=== PATIENT | female | born 1935 | race African-American/Black ===

== ENCOUNTER 2018-10-14 09:27 | Inpatient (IN) | payer MEDICARE, MEDICAID ==
[~2018-10-14] VITALS: Ht 162.6 cm; Wt 64.9 kg
[~2018-10-14 09:27] MED LIST: ACET-2178 PO; CARB1TAB5 GT; CLON0.1T14 GT; DONE10TA43 GT; FERR325T23; LEVO500T2 PO; Metoprolol Tartrate PO
[2018-10-14 10:44] LABS: BASOPHILS % 0.8 % (0.0-2.0); EOSINOPHILS % 1.8 % (0.0-5.0); HEMATOCRIT. 32.1 % (36.0-48.0); HEMOGLOBIN. 11.2 g/dL (12.0-16.0); LYMPHOCYTES % 29.8 % (20.0-50.0); MEAN CORPUSCULAR HEMOGLOBIN 33.1 pg (28.0-32.0); MEAN CORPUSCULAR VOLUME 95.3 fL (81.0-99.0); MEAN PLATELET VOLUME 10.1 fl (7.4-10.4); NEUTROPHILS % 54.6 % (40.0-76.0); PLATELET 215 x1000/uL (130-400); RED BLOOD CELL COUNT 3.37 mill/uL (4.2-5.4); RED CELL DISTRIBUTION WIDTH 13.1 % (11.6-14.6)
[2018-10-14 10:53] LABS: PROTHROMBIN TIME 10.8 sec (9.6-11.0)
[2018-10-15] VITALS (7 sets, daily range): BP systolic 110–171; BP diastolic 39–83
[2018-10-15] MEDS ORDERED: METO25TA6 GT (01:02)
[2018-10-15] MEDS ORDERED: METF-414 GT (01:06)
[2018-10-15] MEDS ORDERED: BACL-141 GT (01:07)
[2018-10-15] MEDS ORDERED: CHOL200010 GT (01:10)
[2018-10-15] MEDS ORDERED: ASCO500C15 GT (01:10)
[2018-10-15] MEDS ORDERED: ACET-2178 GT (01:14)
[2018-10-15] MEDS ORDERED: HYDR-4001 GT (01:14)
[2018-10-15] MEDS ORDERED: CARB1TAB7 GT (04:17)
[2018-10-15] MEDS ORDERED: HYDROCODONE/ACETAMINOPHEN 5/325MG TABLET GT PRN (04:30)
[2018-10-15] MEDS ORDERED: ACETAMINOPHEN 325MG TABLET GT PRN (04:30)
[2018-10-15] MEDS ORDERED: DEXT 5%/0.9% NACL 1,000 ML IV SCH (05:00)
[2018-10-15] MEDS ORDERED: NON FORMULARY PATIENT HOME MED INJ SCH (09:00)
[2018-10-15 09:01] LABS: CHLORIDE 113 mEq/L (98-107)
[2018-10-15 09:02] LABS: BASOPHILS % 0.5 % (0.0-2.0); HEMATOCRIT. 31.6 % (36.0-48.0); HEMOGLOBIN. 10.5 g/dL (12.0-16.0); LYMPHOCYTES % 36.6 % (20.0-50.0); MEAN CORPUSCULAR HEMOGLOBIN 32.6 pg (28.0-32.0); MEAN CORPUSCULAR VOLUME 97.9 fL (81.0-99.0); MEAN PLATELET VOLUME 10.5 fl (7.4-10.4); MONOCYTES % 13.2 % (2.0-8.0); NEUTROPHILS % 46.7 % (40.0-76.0); PLATELET 191 x1000/uL (130-400); RED BLOOD CELL COUNT 3.23 mill/uL (4.2-5.4); RED CELL DISTRIBUTION WIDTH 13.4 % (11.6-14.6)
[2018-10-15 09:03] LABS: PROTHROMBIN TIME 10.6 sec (9.6-11.0)
[2018-10-15] MEDS: PANTOPRAZOLE SODIUM 40 MG/VIAL IV SCH (09:32)
[2018-10-15] MEDS: CHOLECALCIFEROL (D3) 1000 UNIT TABLET GT SCH (09:32)
[2018-10-15] MEDS: CARBIDOPA/LEVODOPA 10/100MG TABLET GT SCH ×3 (09:32→16:56)
[2018-10-15] MEDS: BACLOFEN 10MG TABLET GT SCH ×2 (09:32→16:56)
[2018-10-15] MEDS: METFORMIN HCL 500MG TABLET GT SCH (09:33)
[2018-10-15] MEDS: ASCORBIC ACID 500 MG TABLET GT SCH (09:33)
[2018-10-15] MEDS: METOPROLOL TARTRATE 25MG TABLET GT SCH ×2 (09:33→21:14)
[2018-10-15 12:34] LABS: PLATELET ESTIMATE NORMAL
[2018-10-15 16:58] LABS: FERRITIN 111 ng/mL (10-291)
[2018-10-15] MEDS ORDERED: DEXTROSE 50% WATER 50ML SYRINGE IV PRN (17:00)
[2018-10-15 17:09] LABS: VITAMIN B12 SERUM 1376 pg/mL (211-911)
[2018-10-15 17:11] LABS: FOLIC ACID (FOLATE) SERUM > 20.00 ng/mL (>5.38)
[2018-10-15] MEDS: BLOOD SUGAR DIAGNOSTIC STRIP TEST SCH ×2 (17:20→21:48)
[2018-10-15] MEDS: INSULIN LISPRO 100 UNITS/ML SUBCUT SCH ×2 (17:50→21:48)
[2018-10-15] MEDS ORDERED: ACETAMINOPHEN 650MG/20.3ML UDC GT PRN (19:45)
[2018-10-15] MEDS: DONEPEZIL HCL 10MG TABLET GT SCH (21:15)
[2018-10-16] VITALS: BP 178/73
[2018-10-16 01:09] LABS: CLARITY URINE CLEAR (CLEAR); COLOR URINE YELLOW (YELLOW); KETONES URINE NEGATIVE (NEGATIVE); LEUKOCYTE ESTERASE URINE 1+ (NEGATIVE); NITRITE URINE NEGATIVE (NEGATIVE); OCCULT BLOOD URINE NEGATIVE (NEGATIVE); PH URINE 8.5 (4.5-8.0); PROTEIN URINE NEGATIVE (NEGATIVE); SPECIFIC GRAVITY URINE 1.011 (1.005-1.030); UROBILINOGEN URINE 0.2 E.U./dL (0.2-1.0)
[2018-10-16 04:00] VITALS: BP 152/72
[2018-10-16] MEDS: BLOOD SUGAR DIAGNOSTIC STRIP TEST SCH ×4 (06:25→21:00)
[2018-10-16] MEDS: INSULIN LISPRO 100 UNITS/ML SUBCUT SCH ×4 (07:50→21:00)
[2018-10-16] MEDS: METFORMIN HCL 500MG TABLET GT SCH (07:50)
[2018-10-16 08:16] VITALS: BP 161/64
[2018-10-16] MEDS: ASCORBIC ACID 500 MG TABLET GT SCH (09:00)
[2018-10-16] MEDS: METOPROLOL TARTRATE 25MG TABLET GT SCH ×2 (09:00→23:33)
[2018-10-16] MEDS: BACLOFEN 10MG TABLET GT SCH ×2 (09:00→16:57)
[2018-10-16] MEDS: CARBIDOPA/LEVODOPA 10/100MG TABLET GT SCH ×3 (09:00→16:57)
[2018-10-16] MEDS: CHOLECALCIFEROL (D3) 1000 UNIT TABLET GT SCH (09:00)
[2018-10-16] MEDS: PANTOPRAZOLE SODIUM 40 MG/VIAL IV SCH (09:36)
[2018-10-16 12:00] VITALS: BP 164/65
[2018-10-16 16:00] VITALS: BP 144/74
[2018-10-16 16:32] LABS: BASOPHILS % 1.1 % (0.0-2.0); EOSINOPHILS % 1.3 % (0.0-5.0); HEMATOCRIT. 32.5 % (36.0-48.0); HEMOGLOBIN. 11.2 g/dL (12.0-16.0); LYMPHOCYTES % 28.3 % (20.0-50.0); MEAN CORPUSCULAR HEMOGLOBIN 32.8 pg (28.0-32.0); MEAN CORPUSCULAR VOLUME 95.6 fL (81.0-99.0); MEAN PLATELET VOLUME 10.3 fl (7.4-10.4); MONOCYTES % 8.5 % (2.0-8.0); NEUTROPHILS % 60.8 % (40.0-76.0); PLATELET 271 x1000/uL (130-400)
[2018-10-16 18:31] LABS: PLATELET ESTIMATE NORMAL
[2018-10-16 20:00] VITALS: BP 141/51
[2018-10-16] MEDS: DONEPEZIL HCL 10MG TABLET GT SCH (23:30)
[2018-10-16] MEDS: MUPIROCIN 2% OINT 22GM NS SCH (23:33)
[2018-10-17] VITALS (10 sets, daily range): BP systolic 86–163; BP diastolic 39–96
[2018-10-17] MEDS: BLOOD SUGAR DIAGNOSTIC STRIP TEST SCH ×4 (07:20→21:09)
[2018-10-17] MEDS: INSULIN LISPRO 100 UNITS/ML SUBCUT SCH ×4 (07:50→21:00)
[2018-10-17] MEDS: METFORMIN HCL 500MG TABLET GT SCH (07:50)
[2018-10-17] MEDS ORDERED: DEXT 5%/0.9% NACL 1,000 ML IV SCH (08:30)
[2018-10-17] MEDS: ASCORBIC ACID 500 MG TABLET GT SCH (09:00)
[2018-10-17] MEDS: BACLOFEN 10MG TABLET GT SCH ×2 (09:00→16:41)
[2018-10-17] MEDS: CARBIDOPA/LEVODOPA 10/100MG TABLET GT SCH ×3 (09:00→16:41)
[2018-10-17] MEDS: CHOLECALCIFEROL (D3) 1000 UNIT TABLET GT SCH (09:00)
[2018-10-17] MEDS: METOPROLOL TARTRATE 25MG TABLET GT SCH ×2 (09:00→21:00)
[2018-10-17] MEDS: MUPIROCIN 2% OINT 22GM NS SCH ×2 (09:11→21:06)
[2018-10-17] MEDS: PANTOPRAZOLE SODIUM 40 MG/VIAL IV SCH (09:19)
[2018-10-17] MEDS ORDERED: DIATR MEGLU/DIATRIZOATE SOLN 30ML ONE (13:56)
[2018-10-17] MEDS: DONEPEZIL HCL 10MG TABLET GT SCH (21:06)
[2018-10-18] VITALS (8 sets, daily range): BP systolic 85–147; BP diastolic 39–108
[2018-10-18 06:37] LABS: BASOPHILS % 0.5 % (0.0-2.0); EOSINOPHILS % 1.3 % (0.0-5.0); HEMATOCRIT. 26.4 % (36.0-48.0); HEMOGLOBIN. 9.2 g/dL (12.0-16.0); MEAN CORPUSCULAR HEMOGLOBIN 32.9 pg (28.0-32.0); MEAN CORPUSCULAR VOLUME 94.9 fL (81.0-99.0); MEAN PLATELET VOLUME 9.6 fl (7.4-10.4); MONOCYTES % 11.4 % (2.0-8.0); NEUTROPHILS % 55.8 % (40.0-76.0); PLATELET 230 x1000/uL (130-400); RED BLOOD CELL COUNT 2.79 mill/uL (4.2-5.4); RED CELL DISTRIBUTION WIDTH 13.2 % (11.6-14.6)
[2018-10-18] MEDS: BLOOD SUGAR DIAGNOSTIC STRIP TEST SCH ×4 (06:58→21:42)
[2018-10-18 07:17] LABS: CHLORIDE 109 mEq/L (98-107)
[2018-10-18 07:23] LABS: PHOSPHORUS 3.2 mg/dL (2.5-4.9)
[2018-10-18] MEDS: INSULIN LISPRO 100 UNITS/ML SUBCUT SCH ×4 (07:50→21:00)
[2018-10-18] MEDS: PANTOPRAZOLE SODIUM 40 MG/VIAL IV SCH (09:38)
[2018-10-18] MEDS: METFORMIN HCL 500MG TABLET GT SCH (10:15)
[2018-10-18] MEDS: CARBIDOPA/LEVODOPA 10/100MG TABLET GT SCH ×3 (10:16→18:29)
[2018-10-18] MEDS: MUPIROCIN 2% OINT 22GM NS SCH ×2 (10:16→21:43)
[2018-10-18] MEDS: METOPROLOL TARTRATE 25MG TABLET GT SCH (10:16)
[2018-10-18] MEDS: CHOLECALCIFEROL (D3) 1000 UNIT TABLET GT SCH (10:17)
[2018-10-18] MEDS: ASCORBIC ACID 500 MG TABLET GT SCH (10:17)
[2018-10-18] MEDS: BACLOFEN 10MG TABLET GT SCH ×2 (10:18→18:29)
[2018-10-18] MEDS: CEFTRIAXONE 1 G PREMIX 50 ML IV SCH (12:01)
[2018-10-18 13:11] LABS: TOTAL IRON BINDING CAPACITY 231 ug/dL (250-450)
[2018-10-19] VITALS: BP 158/53
[2018-10-19 04:00] VITALS: BP 146/58
[2018-10-19] MEDS: BLOOD SUGAR DIAGNOSTIC STRIP TEST SCH ×3 (06:38→21:36)
[2018-10-19] MEDS: INSULIN LISPRO 100 UNITS/ML SUBCUT SCH ×3 (07:50→21:00)
[2018-10-19 08:00] VITALS: BP 116/63
[2018-10-19] MEDS: CHOLECALCIFEROL (D3) 1000 UNIT TABLET GT SCH (09:33)
[2018-10-19] MEDS: MUPIROCIN 2% OINT 22GM NS SCH ×2 (09:33→21:37)
[2018-10-19] MEDS: PANTOPRAZOLE SODIUM 40 MG/VIAL IV SCH (09:33)
[2018-10-19] MEDS: ASCORBIC ACID 500 MG TABLET GT SCH (09:34)
[2018-10-19] MEDS: METFORMIN HCL 500MG TABLET GT SCH (09:34)
[2018-10-19] MEDS: BACLOFEN 10MG TABLET GT SCH ×2 (09:34→17:43)
[2018-10-19] MEDS: CARBIDOPA/LEVODOPA 10/100MG TABLET GT SCH ×3 (09:34→17:43)
[2018-10-19] MEDS: CEFTRIAXONE 1 G PREMIX 50 ML IV SCH (11:58)
[2018-10-19 12:00] VITALS: BP 166/49
[2018-10-19 16:00] VITALS: BP 122/50
[2018-10-19 20:29] VITALS: BP 162/78
[2018-10-20] VITALS: BP 157/71
[2018-10-20 04:00] VITALS: BP 136/57
[2018-10-20 06:29] LABS: BASOPHILS % 0.7 % (0.0-2.0); EOSINOPHILS % 2.4 % (0.0-5.0); HEMATOCRIT. 24.1 % (36.0-48.0); HEMOGLOBIN. 8.3 g/dL (12.0-16.0); LYMPHOCYTES % 31.4 % (20.0-50.0); MEAN PLATELET VOLUME 9.7 fl (7.4-10.4); MONOCYTES % 10.3 % (2.0-8.0); NEUTROPHILS % 55.2 % (40.0-76.0); PLATELET 244 x1000/uL (130-400); RED BLOOD CELL COUNT 2.51 mill/uL (4.2-5.4)
[2018-10-20 06:31] LABS: CHLORIDE 107 mEq/L (98-107)
[2018-10-20] MEDS: BLOOD SUGAR DIAGNOSTIC STRIP TEST SCH ×4 (06:59→21:17)
[2018-10-20] MEDS: INSULIN LISPRO 100 UNITS/ML SUBCUT SCH ×4 (07:50→21:00)
[2018-10-20 08:04] VITALS: BP 156/71
[2018-10-20] MEDS: FERROUS SULFATE 325MG TABLET PO SCH ×2 (09:12→17:56)
[2018-10-20] MEDS: BACLOFEN 10MG TABLET GT SCH ×2 (09:12→17:56)
[2018-10-20] MEDS: METFORMIN HCL 500MG TABLET GT SCH (09:12)
[2018-10-20] MEDS: PANTOPRAZOLE SODIUM 40 MG/VIAL IV SCH (09:12)
[2018-10-20] MEDS: CHOLECALCIFEROL (D3) 1000 UNIT TABLET GT SCH (09:12)
[2018-10-20] MEDS: ASCORBIC ACID 500 MG TABLET GT SCH (09:12)
[2018-10-20] MEDS: CARBIDOPA/LEVODOPA 10/100MG TABLET GT SCH ×3 (09:12→17:56)
[2018-10-20] MEDS: MUPIROCIN 2% OINT 22GM NS SCH ×2 (09:36→21:16)
[2018-10-20 12:29] VITALS: BP 173/64
[2018-10-20] MEDS: CEFTRIAXONE 1 G PREMIX 50 ML IV SCH (12:33)
[2018-10-20 16:30] VITALS: BP 170/66
[2018-10-20 20:00] VITALS: BP 170/62
[2018-10-21] VITALS (13 sets, daily range): BP systolic 107–170; BP diastolic 48–97
[2018-10-21 07:04] LABS: BASOPHILS % 0.6 % (0.0-2.0); EOSINOPHILS % 2.2 % (0.0-5.0); HEMATOCRIT. 22.6 % (36.0-48.0); HEMOGLOBIN. 7.8 g/dL (12.0-16.0); LYMPHOCYTES % 34.3 % (20.0-50.0); MEAN CORPUSCULAR HEMOGLOBIN 33.2 pg (28.0-32.0); MEAN PLATELET VOLUME 9.6 fl (7.4-10.4); MONOCYTES % 9.3 % (2.0-8.0); NEUTROPHILS % 53.6 % (40.0-76.0); PLATELET 241 x1000/uL (130-400); RED BLOOD CELL COUNT 2.35 mill/uL (4.2-5.4); RED CELL DISTRIBUTION WIDTH 13.4 % (11.6-14.6)
[2018-10-21] MEDS: INSULIN LISPRO 100 UNITS/ML SUBCUT SCH ×4 (07:13→21:00)
[2018-10-21 07:15] LABS: CHLORIDE 106 mEq/L (98-107)
[2018-10-21] MEDS: BLOOD SUGAR DIAGNOSTIC STRIP TEST SCH ×4 (07:19→21:17)
[2018-10-21] MEDS: MUPIROCIN 2% OINT 22GM NS SCH ×2 (08:02→21:17)
[2018-10-21] MEDS: FERROUS SULFATE 325MG TABLET PO SCH ×3 (08:03→17:58)
[2018-10-21] MEDS: ASCORBIC ACID 500 MG TABLET GT SCH (08:03)
[2018-10-21] MEDS: BACLOFEN 10MG TABLET GT SCH ×2 (08:03→17:58)
[2018-10-21] MEDS: METFORMIN HCL 500MG TABLET GT SCH (08:03)
[2018-10-21] MEDS: PANTOPRAZOLE SODIUM 40 MG/VIAL IV SCH (08:04)
[2018-10-21] MEDS: CARBIDOPA/LEVODOPA 10/100MG TABLET GT SCH ×3 (08:07→17:58)
[2018-10-22] VITALS (8 sets, daily range): BP systolic 128–160; BP diastolic 67–80
[2018-10-22] MEDS: BLOOD SUGAR DIAGNOSTIC STRIP TEST SCH ×3 (07:06→16:45)
[2018-10-22] MEDS: INSULIN LISPRO 100 UNITS/ML SUBCUT SCH ×4 (07:21→17:15)
[2018-10-22] MEDS: BACLOFEN 10MG TABLET GT SCH ×2 (08:04→17:55)
[2018-10-22] MEDS: PANTOPRAZOLE SODIUM 40 MG/VIAL IV SCH (08:04)
[2018-10-22] MEDS: METFORMIN HCL 500MG TABLET GT SCH (08:04)
[2018-10-22] MEDS: FERROUS SULFATE 325MG TABLET PO SCH ×2 (08:04→17:55)
[2018-10-22] MEDS: CARBIDOPA/LEVODOPA 10/100MG TABLET GT SCH ×3 (08:04→17:57)
[2018-10-22] MEDS: ASCORBIC ACID 500 MG TABLET GT SCH (08:04)
[2018-10-22 10:09] LABS: HEMATOCRIT 25.6 % (36.0-48.0); HEMOGLOBIN 8.7 g/dL (12.0-16.0)
== END 2018-10-22 21:05 | DRG 378 ==
LOC: ER 09:27 → 6WST 12:25 → ENRESERV 20:28 → EDBEDREQSVC 21:19 → EDBEDREQTM 21:19 → CANRESERV 22:24 → EDRESERV 22:24 → ENRESERV 22:24 → 6WST 10-15 00:17 → 5WST 10-22 12:23
PROVIDERS: ADMIT Internal Medicine Nephrology; ATTEND Internal Medicine Nephrology
PROC: 30233N1 Transfusion of Nonautologous Red Blood Cells into Peripheral Vein, Percutaneous Approach (ICD-10-PCS; principal; 2018-10-21)
DX: K92.2 Gastrointestinal hemorrhage, unspecified (principal); D62 Acute posthemorrhagic anemia; E46 Unspecified protein-calorie malnutrition; G20 Parkinson's disease; E86.0 Dehydration; K44.9 Diaphragmatic hernia without obstruction or gangrene; F02.80 Dementia in other diseases classified elsewhere, unspecified severity, without behavioral disturbance, psychotic disturbance, mood disturbance, and anxiety; E11.9 Type 2 diabetes mellitus without complications; I11.9 Hypertensive heart disease without heart failure; E78.5 Hyperlipidemia, unspecified; M06.9 Rheumatoid arthritis, unspecified; R47.02 Dysphasia; Z79.84 Long term (current) use of oral hypoglycemic drugs; Z79.899 Other long term (current) drug therapy; Z93.1 Gastrostomy status; Z74.01 Bed confinement status; Z68.24 Body mass index [BMI] 24.0-24.9, adult; R00.1 Bradycardia, unspecified; R13.10 Dysphagia, unspecified
CPT/HCPCS: 36415; 74018; 76830; 76856; 80048; 82040; 82270; 82607; 82728; 82746; 82962; 83540; 83550; 83735; 84100; 84134; 84443; 85014; 85018; 86850; 86900; 86920; 93005; 93306; 99285; A6261; C1893; C9113; J0696; J1815; J7042; J7050; P9016; Q9963